=== PATIENT | female | born 1940 | race African-American/Black ===

== ENCOUNTER → 2016-11-11 | Outpatient (CLI) | payer MEDICARE, OTHER ==
[~2016-11-11] MED LIST: ATOR80TA PO; CALC667C PO; CINA30 PO; DIPH25CA83 PO; LEVO25TA54 PO; NEPVIT PO; PRIM50TA PO; PROC10TA PO; PROT40 PO
== END | disposition home or self-care (01) ==
LOC: RAD 09:04
PROVIDERS: ATTEND Internal Medicine
DX: M19.041 Primary osteoarthritis, right hand (principal); M19.042 Primary osteoarthritis, left hand
CPT/HCPCS: 73130

== ENCOUNTER 2017-08-17 07:43 | Inpatient (IN) | payer MEDICARE, OTHER ==
[~2017-08-17] VITALS: Ht 160 cm; Wt 79.4 kg
[~2017-08-17 07:43] MED LIST changes: +LEVO25TA2 PO; -LEVO25TA54 PO
[2017-08-17] MEDS ORDERED: ASPIRIN 81MG TABLET PO STA (08:43)
[2017-08-17 09:16] LABS: BASOPHILS % 0.6 % (0.0-2.0); EOSINOPHILS % 1.4 % (0.0-5.0); HEMOGLOBIN. 14.1 g/dL (12.0-16.0); LYMPHOCYTES % 7.1 % (20.0-50.0); MEAN CORPUSCULAR HEMOGLOBIN 28.6 pg (28.0-32.0); MEAN CORPUSCULAR VOLUME 85.1 fL (81.0-99.0); MEAN PLATELET VOLUME 7.7 fl (7.4-10.4); MONOCYTES % 12.6 % (2.0-8.0); NEUTROPHILS % 78.3 % (40.0-76.0); PLATELET 137 x1000/uL (130-400); RED BLOOD CELL COUNT 4.94 mill/uL (4.2-5.4); RED CELL DISTRIBUTION WIDTH 15.6 % (11.6-14.6)
[2017-08-17 09:25] LABS: CHLORIDE 94 mEq/L (98-107); INR 1.2; PARTIAL THROMBOPLASTIN TIME 45.2 sec (23.4-31.0)
[2017-08-17] MEDS ORDERED: ENOXAPARIN 100MG/ML SYR SUBCUT ONE (13:30)
[2017-08-17] MEDS ORDERED: LEVOTHYROXINE SODIUM 25MCG TABLET PO NR (17:31)
[2017-08-17 18:00] VITALS: BP 97/43
[2017-08-17] MEDS ORDERED: ONDANSETRON HCL 4MG/2ML VIAL IV PRN (18:45)
[2017-08-17] MEDS: CALCIUM ACETATE 667MG CAPSULE PO SCH (19:40)
[2017-08-17] MEDS: MIDODRINE HCL 5MG TABLET PO SCH (19:41)
[2017-08-17 20:00] VITALS: BP 94/47
[2017-08-17] MEDS: CLINDAMYCIN HCL 150MG CAPSULE PO SCH (20:00)
[2017-08-17] MEDS ORDERED: MAGNESIUM/ALUMINUM HYDROXIDE/SIMETHICONE 30ML UDC PO PRN (20:00)
[2017-08-17] MEDS ORDERED: IPRATROPIUM/ALBUTEROL 0.5-3(2.5)MG/3ML NEB INH PRN (20:00)
[2017-08-17] MEDS ORDERED: LORAZEPAM 0.5MG TABLET PO PRN (20:00)
[2017-08-17] MEDS ORDERED: ACET-2178 PO (20:32)
[2017-08-17] MEDS ORDERED: MIDO10TA PO ×2 (20:35)
[2017-08-17] MEDS: ACETAMINOPHEN 325MG TABLET PO PRN (20:56)
[2017-08-17] MEDS: ATORVASTATIN CALCIUM 40MG TABLET PO SCH (20:57)
[2017-08-17] MEDS: SODIUM CHLORIDE 0.9% INJ 3ML FLUSH IVF SCH (20:57)
[2017-08-17] MEDS ORDERED: ATORVASTATIN CALCIUM 40MG TABLET PO SCH (21:00)
[2017-08-18] VITALS (7 sets, daily range): BP systolic 84–142; BP diastolic 39–97
[2017-08-18] MEDS: ACETAMINOPHEN 325MG TABLET PO PRN ×2 (01:19→21:03)
[2017-08-18] MEDS: CLINDAMYCIN HCL 150MG CAPSULE PO SCH ×3 (05:07→20:57)
[2017-08-18] MEDS: SODIUM CHLORIDE 0.9% INJ 3ML FLUSH IVF SCH ×3 (05:07→20:58)
[2017-08-18 07:01] LABS: HEMATOCRIT. 37.7 % (36.0-48.0); HEMOGLOBIN. 12.4 g/dL (12.0-16.0); MEAN CORPUSCULAR VOLUME 84.9 fL (81.0-99.0); MEAN PLATELET VOLUME 8.4 fl (7.4-10.4); PLATELET 153 x1000/uL (130-400); RED BLOOD CELL COUNT 4.43 mill/uL (4.2-5.4); RED CELL DISTRIBUTION WIDTH 15.3 % (11.6-14.6)
[2017-08-18 07:27] LABS: CHLORIDE 92 mEq/L (98-107)
[2017-08-18 07:39] LABS: PHOSPHORUS 5.1 mg/dL (2.5-4.9)
[2017-08-18] MEDS ORDERED: CALCIUM ACETATE 667MG CAPSULE PO SCH (07:40)
[2017-08-18] MEDS: PRIMIDONE 50MG TABLET PO SCH (08:46)
[2017-08-18] MEDS: CALCIUM ACETATE 667MG CAPSULE PO SCH ×3 (08:46→18:19)
[2017-08-18] MEDS: CINACALCET HCL 90MG TABLET PO SCH (08:46)
[2017-08-18] MEDS: PANTOPRAZOLE 40MG DR TABLET PO SCH (08:46)
[2017-08-18] MEDS: FOLIC ACID/VITAMIN B COMP W-C TABLET PO SCH (08:46)
[2017-08-18] MEDS: MIDODRINE HCL 5MG TABLET PO SCH ×3 (08:49→17:22)
[2017-08-18] MEDS ORDERED: CINACALCET HCL 30MG TABLET PO SCH (09:00)
[2017-08-18] MEDS ORDERED: LEVOTHYROXINE SODIUM 25MCG TABLET PO SCH (09:00)
[2017-08-18] MEDS ORDERED: PRIMIDONE 50MG TABLET PO SCH (09:00)
[2017-08-18] MEDS ORDERED: SODIUM POLYSTYRENE SULFONATE 15 G/60 ML BOT PO NR (09:00)
[2017-08-18] MEDS ORDERED: REGADENOSON 0.4 MG/5 ML IV ONE ×2 (09:30→10:48)
[2017-08-18 10:12] LABS: T4 FREE 0.96 ng/dL (0.76-1.46)
[2017-08-18] MEDS: ASPIRIN 81MG TABLET PO SCH (12:05)
[2017-08-18] MEDS: LEVOFLOXACIN 250MG TABLET PO SCH (12:05)
[2017-08-18] MEDS: ENOXAPARIN 30MG/0.3ML SYR SUBCUT SCH (12:06)
[2017-08-18 15:42] LABS: CREATINE KINASE 65 IU/L (26-192); CREATINE KINASE MB FRACTION 0.5 ng/mL (0.5-3.6)
[2017-08-18 16:26] LABS: PLATELET ESTIMATE NORMAL
[2017-08-18] MEDS: ATORVASTATIN CALCIUM 40MG TABLET PO SCH (20:57)
[2017-08-18] MEDS: DIPHENHYDRAMINE 50MG/ML VIAL IV PRN (23:00)
[2017-08-19] VITALS (13 sets, daily range): BP systolic 102–143; BP diastolic 36–61
[2017-08-19 01:05] LABS: CREATINE KINASE 89 IU/L (26-192); CREATINE KINASE MB FRACTION 0.6 ng/mL (0.5-3.6)
[2017-08-19] MEDS: CLINDAMYCIN HCL 150MG CAPSULE PO SCH ×3 (04:17→22:44)
[2017-08-19] MEDS: SODIUM CHLORIDE 0.9% INJ 3ML FLUSH IVF SCH ×3 (06:16→21:51)
[2017-08-19 07:02] LABS: BASOPHILS % 0.8 % (0.0-2.0); EOSINOPHILS % 3.3 % (0.0-5.0); HEMOGLOBIN. 12.3 g/dL (12.0-16.0); LYMPHOCYTES % 12.5 % (20.0-50.0); MEAN CORPUSCULAR HEMOGLOBIN 27.9 pg (28.0-32.0); MEAN CORPUSCULAR VOLUME 84.4 fL (81.0-99.0); MEAN PLATELET VOLUME 8.4 fl (7.4-10.4); MONOCYTES % 13.6 % (2.0-8.0); NEUTROPHILS % 69.8 % (40.0-76.0); PLATELET 158 x1000/uL (130-400); RED BLOOD CELL COUNT 4.39 mill/uL (4.2-5.4); RED CELL DISTRIBUTION WIDTH 15.6 % (11.6-14.6)
[2017-08-19 07:35] LABS: CHLORIDE 91 mEq/L (98-107)
[2017-08-19 07:48] LABS: CREATINE KINASE 68 IU/L (26-192); CREATINE KINASE MB FRACTION 0.9 ng/mL (0.5-3.6); PHOSPHORUS 6.3 mg/dL (2.5-4.9)
[2017-08-19] MEDS: PANTOPRAZOLE 40MG DR TABLET PO SCH (08:50)
[2017-08-19] MEDS: CALCIUM ACETATE 667MG CAPSULE PO SCH ×3 (08:50→17:56)
[2017-08-19] MEDS: PRIMIDONE 50MG TABLET PO SCH (08:50)
[2017-08-19] MEDS: CINACALCET HCL 90MG TABLET PO SCH (08:50)
[2017-08-19] MEDS: ASPIRIN 81MG TABLET PO SCH (08:50)
[2017-08-19] MEDS: LEVOTHYROXINE SODIUM 25MCG TABLET PO SCH (08:50)
[2017-08-19] MEDS: FOLIC ACID/VITAMIN B COMP W-C TABLET PO SCH (08:50)
[2017-08-19] MEDS: MIDODRINE HCL 5MG TABLET PO SCH ×3 (08:51→17:57)
[2017-08-19] MEDS: ENOXAPARIN 30MG/0.3ML SYR SUBCUT SCH (08:53)
[2017-08-19] MEDS: ACETAMINOPHEN 325MG TABLET PO PRN ×2 (09:50→21:43)
[2017-08-19] MEDS: DIPHENHYDRAMINE 50MG/ML VIAL IV PRN (09:50)
[2017-08-19] MEDS ORDERED: HEPARIN SODIUM 1,000 UNIT/1ML VIAL IV ONE (11:52)
[2017-08-19] MEDS ORDERED: LIDOCAINE HCL 1% 20ML VIAL (Pyxis) INJ ONE (12:44)
[2017-08-19] MEDS ORDERED: IODIXANOL 320MG/ML 100 ML BOTTLE IV ONE (12:45)
[2017-08-19] MEDS ORDERED: MIDAZOLAM HCL 2 MG/2 ML VIAL ONE (12:49)
[2017-08-19] MEDS ORDERED: FENTANYL CITRATE/PF 50MCG/ML 2ML VIAL ONE (12:50)
[2017-08-19] MEDS ORDERED: IOVERSOL 240MG/ML 100ML BOTTLE IV ONE (13:17)
[2017-08-19] MEDS ORDERED: ATROPINE SULFATE 1MG/10ML SYR IV PRN (14:00)
[2017-08-19] MEDS ORDERED: ONDANSETRON HCL 4MG/2ML VIAL IV PRN (14:00)
[2017-08-19] MEDS ORDERED: ACETAMINOPHEN 325MG TABLET PO PRN (14:00)
[2017-08-19] MEDS ORDERED: MORPHINE SULFATE 4 MG/ML CPJ (NOT FOR IM USE) IV PRN (14:00)
[2017-08-19] MEDS ORDERED: ASPIRIN 325MG TABLET ONE (14:01)
[2017-08-19] MEDS: NYSTATIN POWDER 15GM TOP SCH (17:29)
[2017-08-19] MEDS: ASCORBIC ACID 250 MG TABLET PO SCH (21:42)
[2017-08-19] MEDS: ATORVASTATIN CALCIUM 40MG TABLET PO SCH (21:42)
[2017-08-20] VITALS (16 sets, daily range): BP systolic 103–159; BP diastolic 52–87
[2017-08-20] MEDS: CLINDAMYCIN HCL 150MG CAPSULE PO SCH ×3 (04:01→20:37)
[2017-08-20] MEDS: SODIUM CHLORIDE 0.9% INJ 3ML FLUSH IVF SCH ×3 (05:25→21:00)
[2017-08-20] MEDS: LEVOTHYROXINE SODIUM 25MCG TABLET PO SCH (06:11)
[2017-08-20 06:59] LABS: HEMATOCRIT. 37.3 % (36.0-48.0); HEMOGLOBIN. 12.5 g/dL (12.0-16.0); MEAN CORPUSCULAR HEMOGLOBIN 28.6 pg (28.0-32.0); MEAN CORPUSCULAR VOLUME 85.5 fL (81.0-99.0); MEAN PLATELET VOLUME 8.6 fl (7.4-10.4); PLATELET 167 x1000/uL (130-400); RED BLOOD CELL COUNT 4.36 mill/uL (4.2-5.4); RED CELL DISTRIBUTION WIDTH 15.4 % (11.6-14.6)
[2017-08-20] MEDS: FAMOTIDINE 20MG TABLET PO SCH (08:07)
[2017-08-20] MEDS: MIDODRINE HCL 5MG TABLET PO SCH ×3 (08:07→16:52)
[2017-08-20] MEDS: CALCIUM ACETATE 667MG CAPSULE PO SCH ×3 (08:07→16:52)
[2017-08-20] MEDS: ASCORBIC ACID 250 MG TABLET PO SCH ×2 (08:08→20:37)
[2017-08-20] MEDS: ZINC SULFATE 220 MG ( 50 ) CAPSULE PO SCH (08:08)
[2017-08-20] MEDS: FOLIC ACID/VITAMIN B COMP W-C TABLET PO SCH (08:08)
[2017-08-20] MEDS: CINACALCET HCL 90MG TABLET PO SCH (08:08)
[2017-08-20] MEDS ORDERED: ASPIRIN 325MG TABLET PO SCH (09:00)
[2017-08-20] MEDS: NYSTATIN POWDER 15GM TOP SCH ×2 (09:42→17:06)
[2017-08-20] MEDS: PRIMIDONE 50MG TABLET PO SCH (09:42)
[2017-08-20] MEDS: LEVOFLOXACIN 250MG TABLET PO SCH (11:11)
[2017-08-20] MEDS ORDERED: LIDOCAINE HCL/PF 1% 10 MG/ML 5ML VIAL INL NR (12:15)
[2017-08-20 13:09] LABS: PLATELET ESTIMATE NORMAL
[2017-08-20] MEDS: ACETAMINOPHEN 325MG TABLET PO PRN (19:27)
[2017-08-20] MEDS: ATORVASTATIN CALCIUM 40MG TABLET PO SCH (20:37)
[2017-08-21] VITALS (14 sets, daily range): BP systolic 102–156; BP diastolic 53–118
[2017-08-21] MEDS: CLINDAMYCIN HCL 150MG CAPSULE PO SCH (03:20)
[2017-08-21] MEDS: SODIUM CHLORIDE 0.9% INJ 3ML FLUSH IVF SCH ×3 (05:06→21:11)
[2017-08-21] MEDS: LEVOTHYROXINE SODIUM 25MCG TABLET PO SCH (06:07)
[2017-08-21 07:01] LABS: BASOPHILS % 0.6 % (0.0-2.0); EOSINOPHILS % 2.6 % (0.0-5.0); HEMATOCRIT. 36.3 % (36.0-48.0); HEMOGLOBIN. 11.9 g/dL (12.0-16.0); LYMPHOCYTES % 9.5 % (20.0-50.0); MEAN CORPUSCULAR HEMOGLOBIN 27.8 pg (28.0-32.0); MEAN CORPUSCULAR VOLUME 84.9 fL (81.0-99.0); MEAN PLATELET VOLUME 8.7 fl (7.4-10.4); MONOCYTES % 14.6 % (2.0-8.0); NEUTROPHILS % 72.7 % (40.0-76.0); PLATELET 183 x1000/uL (130-400); RED BLOOD CELL COUNT 4.28 mill/uL (4.2-5.4); RED CELL DISTRIBUTION WIDTH 15.5 % (11.6-14.6)
[2017-08-21 07:28] LABS: CHLORIDE 100 mEq/L (98-107)
[2017-08-21 07:38] LABS: PHOSPHORUS 3.7 mg/dL (2.5-4.9)
[2017-08-21] MEDS: CALCIUM ACETATE 667MG CAPSULE PO SCH ×3 (08:20→17:47)
[2017-08-21] MEDS: MIDODRINE HCL 5MG TABLET PO SCH ×3 (09:00→17:48)
[2017-08-21] MEDS: ASCORBIC ACID 250 MG TABLET PO SCH ×2 (09:00→21:06)
[2017-08-21] MEDS: ZINC SULFATE 220 MG ( 50 ) CAPSULE PO SCH (09:53)
[2017-08-21] MEDS: FOLIC ACID/VITAMIN B COMP W-C TABLET PO SCH (09:53)
[2017-08-21] MEDS: ASPIRIN 325MG TABLET PO SCH (09:53)
[2017-08-21] MEDS: PRIMIDONE 50MG TABLET PO SCH (09:53)
[2017-08-21] MEDS: CINACALCET HCL 90MG TABLET PO SCH (10:05)
[2017-08-21] MEDS: FAMOTIDINE 20MG TABLET PO SCH (10:05)
[2017-08-21] MEDS: NYSTATIN POWDER 15GM TOP SCH ×2 (10:09→17:49)
[2017-08-21] MEDS: CEFTRIAXONE 1 G PREMIX 50 ML IV SCH (13:12)
[2017-08-21] MEDS: DIPHENHYDRAMINE 50MG/ML VIAL IV PRN (19:27)
[2017-08-21] MEDS ORDERED: PROCHLORPERAZINE MALEATE 10MG TABLET PO PRN (20:00)
[2017-08-21] MEDS: ATORVASTATIN CALCIUM 40MG TABLET PO SCH (21:06)
[2017-08-22] VITALS (7 sets, daily range): BP systolic 106–137; BP diastolic 25–87
[2017-08-22] MEDS: DIPHENHYDRAMINE 50MG/ML VIAL IV PRN ×3 (04:51→21:13)
[2017-08-22] MEDS: SODIUM CHLORIDE 0.9% INJ 3ML FLUSH IVF SCH ×2 (05:51→20:45)
[2017-08-22] MEDS: LEVOTHYROXINE SODIUM 25MCG TABLET PO SCH (06:19)
[2017-08-22 07:16] LABS: BASOPHILS % 0.4 % (0.0-2.0); EOSINOPHILS % 2.5 % (0.0-5.0); HEMATOCRIT. 36.2 % (36.0-48.0); HEMOGLOBIN. 11.9 g/dL (12.0-16.0); LYMPHOCYTES % 7.7 % (20.0-50.0); MEAN CORPUSCULAR HEMOGLOBIN 28.1 pg (28.0-32.0); MEAN CORPUSCULAR VOLUME 85.1 fL (81.0-99.0); MEAN PLATELET VOLUME 8.7 fl (7.4-10.4); MONOCYTES % 11.4 % (2.0-8.0); PLATELET 172 x1000/uL (130-400); RED BLOOD CELL COUNT 4.25 mill/uL (4.2-5.4); RED CELL DISTRIBUTION WIDTH 15.3 % (11.6-14.6)
[2017-08-22 07:31] LABS: CHLORIDE 102 mEq/L (98-107)
[2017-08-22 07:37] LABS: PHOSPHORUS 2.7 mg/dL (2.5-4.9)
[2017-08-22] MEDS: CINACALCET HCL 90MG TABLET PO SCH (08:05)
[2017-08-22] MEDS: MIDODRINE HCL 5MG TABLET PO SCH ×3 (08:05→17:00)
[2017-08-22] MEDS: CALCIUM ACETATE 667MG CAPSULE PO SCH ×3 (08:05→17:49)
[2017-08-22] MEDS: FOLIC ACID/VITAMIN B COMP W-C TABLET PO SCH (08:06)
[2017-08-22] MEDS: PRIMIDONE 50MG TABLET PO SCH (08:06)
[2017-08-22] MEDS: ASCORBIC ACID 250 MG TABLET PO SCH (08:06)
[2017-08-22] MEDS: FAMOTIDINE 20MG TABLET PO SCH (08:07)
[2017-08-22] MEDS: ZINC SULFATE 220 MG ( 50 ) CAPSULE PO SCH (08:07)
[2017-08-22] MEDS: ASPIRIN 325MG TABLET PO SCH (08:07)
[2017-08-22] MEDS: NYSTATIN POWDER 15GM TOP SCH ×2 (09:01→17:51)
[2017-08-22] MEDS: CEFTRIAXONE 1 G PREMIX 50 ML IV SCH (11:29)
[2017-08-22] MEDS: DOCUSATE SODIUM 100MG CAPSULE PO SCH (17:50)
[2017-08-22] MEDS: ATORVASTATIN CALCIUM 40MG TABLET PO SCH (20:44)
[2017-08-22] MEDS ORDERED: POLYETHYLENE GLYCOL 3350 (17GM) 1 DOSE PACK PO SCH (21:00)
[2017-08-22] MEDS: ACETAMINOPHEN 325MG TABLET PO PRN (22:11)
[2017-08-23] VITALS: BP 116/47
[2017-08-23] MEDS: DIPHENHYDRAMINE 50MG/ML VIAL IV PRN ×2 (03:15→16:43)
[2017-08-23 04:00] VITALS: BP 116/50
[2017-08-23] MEDS: CALCIUM ACETATE 667MG CAPSULE PO SCH ×3 (06:26→16:40)
[2017-08-23] MEDS: SODIUM CHLORIDE 0.9% INJ 3ML FLUSH IVF SCH ×4 (06:26→22:16)
[2017-08-23] MEDS: LEVOTHYROXINE SODIUM 25MCG TABLET PO SCH (06:26)
[2017-08-23 06:45] LABS: HEMATOCRIT. 35.9 % (36.0-48.0); HEMOGLOBIN. 11.8 g/dL (12.0-16.0); MEAN CORPUSCULAR HEMOGLOBIN 27.8 pg (28.0-32.0); MEAN CORPUSCULAR VOLUME 84.5 fL (81.0-99.0); MEAN PLATELET VOLUME 8.7 fl (7.4-10.4); PLATELET 185 x1000/uL (130-400); RED BLOOD CELL COUNT 4.25 mill/uL (4.2-5.4); RED CELL DISTRIBUTION WIDTH 15.3 % (11.6-14.6)
[2017-08-23 07:52] LABS: CHLORIDE 98 mEq/L (98-107)
[2017-08-23 08:00] VITALS: BP 140/56
[2017-08-23] MEDS: DOCUSATE SODIUM 100MG CAPSULE PO SCH (08:38)
[2017-08-23] MEDS: ASPIRIN 325MG TABLET PO SCH (08:38)
[2017-08-23] MEDS: CINACALCET HCL 90MG TABLET PO SCH (08:38)
[2017-08-23] MEDS: FOLIC ACID/VITAMIN B COMP W-C TABLET PO SCH (08:39)
[2017-08-23] MEDS: MIDODRINE HCL 5MG TABLET PO SCH ×3 (08:39→16:40)
[2017-08-23] MEDS: NYSTATIN POWDER 15GM TOP SCH ×2 (09:09→16:41)
[2017-08-23 09:52] LABS: PLATELET ESTIMATE NORMAL
[2017-08-23] MEDS ORDERED: SODIUM POLYSTYRENE SULFONATE 15 G/60 ML BOT PO NR (10:00)
[2017-08-23] MEDS ORDERED: ZOLPIDEM TARTRATE 5MG TABLET PO PRN (10:15)
[2017-08-23 12:00] VITALS: BP 114/61
[2017-08-23] MEDS: CEFTRIAXONE 1 G PREMIX 50 ML IV SCH (12:18)
[2017-08-23 16:00] VITALS: BP 118/73
[2017-08-23 20:00] VITALS: BP 153/72
[2017-08-23] MEDS ORDERED: ATORVASTATIN CALCIUM 20MG TABLET PO SCH (21:00)
[2017-08-24] VITALS: BP 149/61
[2017-08-24 04:00] VITALS: BP 122/58
[2017-08-24] MEDS: DIPHENHYDRAMINE 50MG/ML VIAL IV PRN ×2 (04:39→13:36)
[2017-08-24] MEDS: SODIUM CHLORIDE 0.9% INJ 3ML FLUSH IVF SCH ×2 (06:22→13:26)
[2017-08-24] MEDS: LEVOTHYROXINE SODIUM 25MCG TABLET PO SCH (06:22)
[2017-08-24 06:40] LABS: HEMATOCRIT. 35.7 % (36.0-48.0); HEMOGLOBIN. 11.8 g/dL (12.0-16.0); MEAN CORPUSCULAR HEMOGLOBIN 27.7 pg (28.0-32.0); MEAN CORPUSCULAR VOLUME 83.5 fL (81.0-99.0); MEAN PLATELET VOLUME 8.8 fl (7.4-10.4); PLATELET 208 x1000/uL (130-400); RED BLOOD CELL COUNT 4.27 mill/uL (4.2-5.4)
[2017-08-24 06:55] LABS: CHLORIDE 95 mEq/L (98-107)
[2017-08-24 07:07] LABS: PHOSPHORUS 3.1 mg/dL (2.5-4.9)
[2017-08-24] MEDS: CALCIUM ACETATE 667MG CAPSULE PO SCH ×3 (07:40→13:28)
[2017-08-24] MEDS: ASPIRIN 325MG TABLET PO SCH (08:09)
[2017-08-24] MEDS: FOLIC ACID/VITAMIN B COMP W-C TABLET PO SCH (08:09)
[2017-08-24] MEDS: MIDODRINE HCL 5MG TABLET PO SCH ×3 (08:09→13:27)
[2017-08-24] MEDS: CINACALCET HCL 90MG TABLET PO SCH (08:10)
[2017-08-24 08:18] VITALS: BP 139/62
[2017-08-24] MEDS: NYSTATIN POWDER 15GM TOP SCH (09:31)
[2017-08-24 11:56] VITALS: BP 98/58
[2017-08-24] MEDS: CEFTRIAXONE 1 G PREMIX 50 ML IV SCH (12:15)
[2017-08-24] MEDS ORDERED: HYDROXYZINE 25MG TABLET PO PRN (15:30)
[2017-08-24] MEDS ORDERED: METHYLPREDNISOLONE SOD SUCC 40 MG/ML VIAL IV NR (15:30)
[2017-08-24] MEDS ORDERED: LORAZEPAM 1MG TABLET PO PRN (15:30)
[2017-08-24] MEDS ORDERED: METHYLPREDNISOLONE SOD SUCC 125 MG/2 ML VIAL IV NR (15:36)
[2017-08-24 15:48] VITALS: BP 160/63
[2017-08-24 16:12] LABS: PLATELET ESTIMATE NORMAL
[2017-08-24 17:12] LABS: INR 1.2
[2017-08-24 17:16] VITALS: BP 160/63
[2017-08-24 17:19] LABS: AMMONIA < 10 uMol/L (<32)
== END 2017-08-24 19:30 | DRG 252 ==
LOC: ER 07:52 → 7WST 11:13 → EDBEDREQ 11:14 → EDBEDREQTM 11:14 → ENRESERV 15:52 → 3WST 08-19 14:26 → 8WST 08-22 09:27
PROVIDERS: ADMIT Internal Medicine; ATTEND Internal Medicine
PROC: 047Q3ZZ Dilation of Left Anterior Tibial Artery, Percutaneous Approach (ICD-10-PCS; principal; 2017-08-19)
PROC: B41G1ZZ Fluoroscopy of Left Lower Extremity Arteries using Low Osmolar Contrast (ICD-10-PCS; 2017-08-19)
PROC: B41F1ZZ Fluoroscopy of Right Lower Extremity Arteries using Low Osmolar Contrast (ICD-10-PCS; 2017-08-19)
PROC: 0JBR0ZZ Excision of Left Foot Subcutaneous Tissue and Fascia, Open Approach (ICD-10-PCS; 2017-08-20)
DX: E11.51 Type 2 diabetes mellitus with diabetic peripheral angiopathy without gangrene (principal); N18.6 End stage renal disease; E11.40 Type 2 diabetes mellitus with diabetic neuropathy, unspecified; E11.21 Type 2 diabetes mellitus with diabetic nephropathy; E11.621 Type 2 diabetes mellitus with foot ulcer; I49.5 Sick sinus syndrome; L03.116 Cellulitis of left lower limb; I13.11 Hypertensive heart and chronic kidney disease without heart failure, with stage 5 chronic kidney disease, or end stage renal disease; R07.89 Other chest pain; E87.5 Hyperkalemia; L97.529 Non-pressure chronic ulcer of other part of left foot with unspecified severity; Z99.2 Dependence on renal dialysis; I95.1 Orthostatic hypotension; I99.8 Other disorder of circulatory system; M19.90 Unspecified osteoarthritis, unspecified site; M85.80 Other specified disorders of bone density and structure, unspecified site; L27.0 Generalized skin eruption due to drugs and medicaments taken internally; K21.9 Gastro-esophageal reflux disease without esophagitis; E78.5 Hyperlipidemia, unspecified; E03.9 Hypothyroidism, unspecified; I48.91 Unspecified atrial fibrillation; Z96.643 Presence of artificial hip joint, bilateral; E21.1 Secondary hyperparathyroidism, not elsewhere classified; Z95.810 Presence of automatic (implantable) cardiac defibrillator; Z90.710 Acquired absence of both cervix and uterus; Z90.49 Acquired absence of other specified parts of digestive tract; Z86.73 Personal history of transient ischemic attack (TIA), and cerebral infarction without residual deficits; Z83.3 Family history of diabetes mellitus; Z82.49 Family history of ischemic heart disease and other diseases of the circulatory system; Z90.89 Acquired absence of other organs; Z79.899 Other long term (current) drug therapy; Z88.2 Allergy status to sulfonamides; Z88.6 Allergy status to analgesic agent; Z88.8 Allergy status to other drugs, medicaments and biological substances
CPT/HCPCS: 36415; 37228; 71045; 73630; 75710; 76700; 78452; 80048; 80053; 80061; 82140; 82550; 82553; 83036; 83735; 83880; 84100; 84439; 84443; 84484; 85025; 85347; 85379; 85610; 85730; 93005; 93017; 93306; 93922; 96372; 97110; 97116; 97162; 97166; 97530; 97535; 99285; A9500; C1725; C1760; C1769; C1887; C1893; C1894; J0696; J1200; J1644; J1650; J2250; J2785; J2930; J3010; J3490; J7030; J7040; J7050; Q9967

== ENCOUNTER 2018-10-04 07:27 | Inpatient (IN) | payer MEDICARE, OTHER ==
[~2018-10-04] VITALS: Ht 160 cm; Wt 76.2 kg
[~2018-10-04 07:27] MED LIST changes: +ACET-2178 PO; +MIDO10TA PO; -PRIM50TA PO; -PROC10TA PO; +PROC10TA13 PO
[2018-10-04] MEDS ORDERED: SODIUM CHLORIDE 0.9% 1,000 ML IV ONE (07:48)
[2018-10-04 08:07] LABS: EOSINOPHILS % 1.4 % (0.0-5.0); HEMATOCRIT. 45.5 % (36.0-48.0); HEMOGLOBIN. 14.6 g/dL (12.0-16.0); LYMPHOCYTES % 20.7 % (20.0-50.0); MEAN CORPUSCULAR HEMOGLOBIN 27.6 pg (28.0-32.0); MEAN CORPUSCULAR VOLUME 85.9 fL (81.0-99.0); MEAN PLATELET VOLUME 7.8 fl (7.4-10.4); MONOCYTES % 8.4 % (2.0-8.0); NEUTROPHILS % 68.5 % (40.0-76.0); PLATELET 113 x1000/uL (130-400); RED CELL DISTRIBUTION WIDTH 16.4 % (11.6-14.6)
[2018-10-04 08:14] LABS: CHLORIDE 97 mEq/L (98-107)
[2018-10-04] MEDS ORDERED: IPRATROPIUM/ALBUTEROL 0.5-3(2.5)MG/3ML NEB INH PRN (12:30)
[2018-10-04] MEDS ORDERED: GUAIFENESIN 200MG/10ML SUGAR FREE UDC PO PRN (12:30)
[2018-10-04] MEDS ORDERED: ACETAMINOPHEN 325MG TABLET PO PRN (12:30)
[2018-10-04] MEDS ORDERED: NITROGLYCERIN 0.4MG TABLET SL SL PRN (12:30)
[2018-10-04] MEDS ORDERED: ENOXAPARIN 40MG/0.4ML SYR SUBCUT SCH (12:30)
[2018-10-04] MEDS ORDERED: CLONIDINE 0.1MG TABLET PO PRN (12:30)
[2018-10-04] MEDS ORDERED: DOCUSATE SODIUM 100MG CAPSULE PO PRN (12:30)
[2018-10-04] MEDS ORDERED: TRAMADOL 50MG TABLET PO PRN (12:30)
[2018-10-04] MEDS ORDERED: MAGNESIUM/ALUMINUM HYDROXIDE/SIMETHICONE 30ML UDC PO PRN (12:30)
[2018-10-04] MEDS ORDERED: MORPHINE SULFATE 4 MG/ML CPJ (NOT FOR IM USE) IV PRN (12:30)
[2018-10-04 12:52] LABS: T4 FREE 1.15 ng/dL (0.76-1.46)
[2018-10-04 15:14] LABS: CREATINE KINASE 38 IU/L (26-192)
[2018-10-04 15:15] LABS: CREATINE KINASE MB FRACTION < 1.0 ng/mL (0.5-3.6)
[2018-10-04] MEDS ORDERED: ENOXAPARIN 60MG/0.6ML SYR SUBCUT SCH (16:15)
[2018-10-04 16:30] VITALS: BP 137/76
[2018-10-04] MEDS: SEVELAMER CARBONATE 800 MG TABLET PO SCH ×3 (17:00→18:00)
[2018-10-04] MEDS ORDERED: SEVE800T8 PO (19:46)
[2018-10-04] MEDS ORDERED: ACET-2853 PO (19:50)
[2018-10-04] MEDS ORDERED: MIDO5TAB PO (19:50)
[2018-10-04 20:00] VITALS: BP 129/62
[2018-10-04] MEDS: ATORVASTATIN CALCIUM 40MG TABLET PO SCH (20:56)
[2018-10-04] MEDS: FAMOTIDINE 20MG TABLET PO SCH (20:56)
[2018-10-04] MEDS ORDERED: ZOLPIDEM TARTRATE 5MG TABLET PO PRN (21:00)
[2018-10-04] MEDS ORDERED: ASPIRIN 325MG EC TABLET PO SCH (21:00)
[2018-10-05] VITALS: BP 137/59
[2018-10-05 00:10] LABS: CREATINE KINASE 40 IU/L (26-192)
[2018-10-05 00:11] LABS: CREATINE KINASE MB FRACTION 1.2 ng/mL (0.5-3.6)
[2018-10-05 04:00] VITALS: BP 133/61
[2018-10-05 06:21] LABS: BASOPHILS % 1.4 % (0.0-2.0); HEMATOCRIT. 41.5 % (36.0-48.0); HEMOGLOBIN. 13.3 g/dL (12.0-16.0); LYMPHOCYTES % 37.8 % (20.0-50.0); MEAN CORPUSCULAR HEMOGLOBIN 27.6 pg (28.0-32.0); MEAN CORPUSCULAR VOLUME 86.4 fL (81.0-99.0); MEAN PLATELET VOLUME 9.4 fl (7.4-10.4); NEUTROPHILS % 45.8 % (40.0-76.0); PLATELET 110 x1000/uL (130-400); RED CELL DISTRIBUTION WIDTH 16.5 % (11.6-14.6)
[2018-10-05 06:29] LABS: CHLORIDE 99 mEq/L (98-107)
[2018-10-05 06:35] LABS: PHOSPHORUS 5.7 mg/dL (2.5-4.9)
[2018-10-05] MEDS: SEVELAMER CARBONATE 800 MG TABLET PO SCH ×3 (07:40→18:05)
[2018-10-05 08:00] VITALS: BP 146/69
[2018-10-05] MEDS: FOLIC ACID/VITAMIN B COMP W-C TABLET PO SCH (09:00)
[2018-10-05 12:00] VITALS: BP 165/72
[2018-10-05] MEDS ORDERED: ENOXAPARIN 30MG/0.3ML SYR SUBCUT NR (14:30)
[2018-10-05] MEDS: ASPIRIN 81MG EC TABLET PO SCH (15:56)
[2018-10-05 16:00] VITALS: BP 123/67
[2018-10-05 20:00] VITALS: BP 104/53
[2018-10-05] MEDS: FAMOTIDINE 20MG TABLET PO SCH (20:59)
[2018-10-05] MEDS: ATORVASTATIN CALCIUM 40MG TABLET PO SCH (20:59)
[2018-10-06] VITALS (7 sets, daily range): BP systolic 116–166; BP diastolic 53–87
[2018-10-06 06:45] LABS: BASOPHILS % 1.2 % (0.0-2.0); HEMATOCRIT. 40.9 % (36.0-48.0); HEMOGLOBIN. 13.1 g/dL (12.0-16.0); LYMPHOCYTES % 35.9 % (20.0-50.0); MEAN CORPUSCULAR HEMOGLOBIN 27.6 pg (28.0-32.0); MEAN CORPUSCULAR VOLUME 86.2 fL (81.0-99.0); MEAN PLATELET VOLUME 8.8 fl (7.4-10.4); MONOCYTES % 12.4 % (2.0-8.0); NEUTROPHILS % 47.5 % (40.0-76.0); PLATELET 97 x1000/uL (130-400); RED BLOOD CELL COUNT 4.75 mill/uL (4.2-5.4); RED CELL DISTRIBUTION WIDTH 16.2 % (11.6-14.6)
[2018-10-06 06:46] LABS: CHLORIDE 103 mEq/L (98-107)
[2018-10-06 07:07] LABS: PHOSPHORUS 5.2 mg/dL (2.5-4.9)
[2018-10-06] MEDS ORDERED: FENTANYL CITRATE/PF 50MCG/ML 2ML VIAL ONE (09:42)
[2018-10-06] MEDS ORDERED: MIDAZOLAM HCL 2 MG/2 ML VIAL ONE (09:42)
[2018-10-06] MEDS ORDERED: IODIXANOL 320MG/ML 100 ML BOTTLE IV ONE (09:43)
[2018-10-06] MEDS ORDERED: ASPIRIN/SOD BICARB/CITRIC ACID 324MG TAB EFF ONE (09:43)
[2018-10-06] MEDS ORDERED: LIDOCAINE HCL 1% 20ML VIAL (Pyxis) INJ ONE (09:45)
[2018-10-06] MEDS ORDERED: ATROPINE SULFATE 1MG/10ML SYR IV PRN (11:00)
[2018-10-06] MEDS ORDERED: MORPHINE SULFATE 4 MG/ML CPJ (NOT FOR IM USE) IV PRN (11:00)
[2018-10-06] MEDS ORDERED: ACETAMINOPHEN 325MG TABLET PO PRN (11:00)
[2018-10-06] MEDS ORDERED: NICARDIPINE 100MCG/ML 10ML VIAL (CATH LAB) IV ONE (12:00)
[2018-10-06] MEDS ORDERED: NITROGLYCERIN 50MCG/ML 10ML VIAL (CATH LAB) IV ONE (12:00)
[2018-10-06] MEDS ORDERED: HEPARIN SODIUM 1,000 UNIT/1ML VIAL IV ONE (12:00)
[2018-10-06] MEDS: SEVELAMER CARBONATE 800 MG TABLET PO SCH ×2 (12:40→18:19)
[2018-10-06] MEDS: ATORVASTATIN CALCIUM 40MG TABLET PO SCH (21:16)
[2018-10-06] MEDS: FAMOTIDINE 20MG TABLET PO SCH (21:16)
[2018-10-07] VITALS (10 sets, daily range): BP systolic 88–145; BP diastolic 31–73
[2018-10-07 07:33] LABS: BASOPHILS % 0.7 % (0.0-2.0); EOSINOPHILS % 1.9 % (0.0-5.0); HEMATOCRIT. 40.4 % (36.0-48.0); LYMPHOCYTES % 16.6 % (20.0-50.0); MEAN CORPUSCULAR HEMOGLOBIN 27.8 pg (28.0-32.0); MEAN CORPUSCULAR VOLUME 86.3 fL (81.0-99.0); MEAN PLATELET VOLUME 8.7 fl (7.4-10.4); MONOCYTES % 10.2 % (2.0-8.0); NEUTROPHILS % 70.6 % (40.0-76.0); PLATELET 80 x1000/uL (130-400); RED BLOOD CELL COUNT 4.69 mill/uL (4.2-5.4); RED CELL DISTRIBUTION WIDTH 16.3 % (11.6-14.6)
[2018-10-07 07:43] LABS: PHOSPHORUS 2.9 mg/dL (2.5-4.9)
[2018-10-07] MEDS: ASPIRIN 81MG EC TABLET PO SCH (08:48)
[2018-10-07] MEDS: FOLIC ACID/VITAMIN B COMP W-C TABLET PO SCH (08:48)
[2018-10-07] MEDS: SEVELAMER CARBONATE 800 MG TABLET PO SCH ×2 (08:48→12:54)
[2018-10-07] MEDS: NYSTATIN POWDER 15GM TOP SCH ×2 (12:14→16:02)
== END 2018-10-07 17:50 | disposition home or self-care (01) | DRG 286 ==
LOC: ER 07:27 → 8WST 10:29 → ENRESERV 15:48 → EDBEDREQ 17:02 → 3WST 10-06 13:10
PROVIDERS: ADMIT Internal Medicine; ATTEND Internal Medicine
PROC: 5A1D70Z Performance of Urinary Filtration, Intermittent, Less than 6 Hours Per Day (ICD-10-PCS; 2018-10-05)
PROC: 4A023N7 Measurement of Cardiac Sampling and Pressure, Left Heart, Percutaneous Approach (ICD-10-PCS; principal; 2018-10-06)
PROC: B2111ZZ Fluoroscopy of Multiple Coronary Arteries using Low Osmolar Contrast (ICD-10-PCS; 2018-10-06)
PROC: B2151ZZ Fluoroscopy of Left Heart using Low Osmolar Contrast (ICD-10-PCS; 2018-10-06)
PROC: 5A1D70Z Performance of Urinary Filtration, Intermittent, Less than 6 Hours Per Day (ICD-10-PCS; 2018-10-06)
DX: R07.89 Other chest pain (principal); N18.6 End stage renal disease; I12.0 Hypertensive chronic kidney disease with stage 5 chronic kidney disease or end stage renal disease; E44.1 Mild protein-calorie malnutrition; N25.81 Secondary hyperparathyroidism of renal origin; I48.0 Paroxysmal atrial fibrillation; E11.22 Type 2 diabetes mellitus with diabetic chronic kidney disease; I49.5 Sick sinus syndrome; D69.6 Thrombocytopenia, unspecified; E87.5 Hyperkalemia; I95.9 Hypotension, unspecified; E11.42 Type 2 diabetes mellitus with diabetic polyneuropathy; L30.4 Erythema intertrigo; B35.6 Tinea cruris; Z96.641 Presence of right artificial hip joint; E03.9 Hypothyroidism, unspecified; E11.51 Type 2 diabetes mellitus with diabetic peripheral angiopathy without gangrene; E78.00 Pure hypercholesterolemia, unspecified; I25.10 Atherosclerotic heart disease of native coronary artery without angina pectoris; Z82.49 Family history of ischemic heart disease and other diseases of the circulatory system; Z86.73 Personal history of transient ischemic attack (TIA), and cerebral infarction without residual deficits; Z88.6 Allergy status to analgesic agent; Z90.49 Acquired absence of other specified parts of digestive tract; Z90.710 Acquired absence of both cervix and uterus; Z95.810 Presence of automatic (implantable) cardiac defibrillator; Z99.2 Dependence on renal dialysis; Z88.8 Allergy status to other drugs, medicaments and biological substances; Z88.2 Allergy status to sulfonamides; Z68.29 Body mass index [BMI] 29.0-29.9, adult
CPT/HCPCS: 36415; 71045; 80048; 80061; 82550; 82553; 82962; 83036; 83735; 83880; 84100; 84134; 84439; 84443; 84484; 85347; 85379; 93005; 93306; 93970; 96360; 97162; 99285; J1644; J1650; J2250; J2270; J3010; J3490; J7030; Q9967

== ENCOUNTER → 2021-12-09 | Outpatient (CLI) | payer MEDICARE, OTHER ==
[~2021-12-09] MED LIST changes: -ACET-2178 PO; +ACET-3163 PO; -CALC667C PO; +MIDO5TAB4 PO; -NEPVIT PO; +SEVE800T8 PO
== END | disposition home or self-care (01) ==
LOC: RAD 10:53
PROVIDERS: ATTEND Internal Medicine Nephrology
DX: I10 Essential (primary) hypertension (principal); Z49.01 Encounter for fitting and adjustment of extracorporeal dialysis catheter; Z95.0 Presence of cardiac pacemaker
CPT/HCPCS: 71045